=== PATIENT | female | born 1985 | race Caucasian/White ===

== ENCOUNTER 2018-05-09 08:58 | Inpatient (IN) | payer OTHER ==
[~2018-05-09] VITALS: Ht 154.9 cm; Wt 89.5 kg
[2018-05-09 09:21] VITALS: BP 133/81
[2018-05-09] MEDS ORDERED: AMPICILLIN 2 GM in SODIUM CHLORIDE 0.9% 100 ML IVPB STA (09:41)
[2018-05-09] MEDS ORDERED: D5%-LACTATED RINGERS 1,000 ML IV SCH (09:41)
[2018-05-09] MEDS ORDERED: OXYTOCIN 30U/ 0.9% NaCL 500ML 500 ML IV ONE (09:41)
[2018-05-09] MEDS ORDERED: OXYTOCIN 30U/ 0.9% NaCL 500ML 500 ML ONE (09:50)
[2018-05-09] MEDS ORDERED: FENTANYL PF 100 MCG/2ML IV PRN (10:00)
[2018-05-09] MEDS ORDERED: TERBUTALINE 1 MG/ML, 1ML IVPush PRN (10:00)
[2018-05-09] MEDS ORDERED: ONDANSETRON 2MG/ML, 2ML IVPush PRN (10:00)
[2018-05-09] MEDS ORDERED: FENTANYL PF 100 MCG/2ML IVPush PRN (10:00)
[2018-05-09] MEDS: LACTATED RINGERS 1,000 ML IV SCH ×3 (10:17→19:32)
[2018-05-09 10:25] LABS: BASOPHILS # (AUTO) 0.05 x10^3/uL (0-0.1); BASOPHILS % (AUTO) 1 % (0-1); EOSINOPHILS # (AUTO) 0.18 x10^3/uL (0-0.4); EOSINOPHILS % (AUTO) 2 % (1-7); LYMPHOCYTES # (AUTO) 2.05 x10^3/uL (1-3.4); LYMPHOCYTES % (AUTO) 20 % (22-44); MD NO; MEAN CORPUSCULAR HEMOGLOBIN 33.2 pg (27.0-34.8); MEAN CORPUSCULAR HGB CONC 34.7 g/dL (32.4-35.8); MEAN CORPUSCULAR VOLUME 95.4 fL (80-100); MEAN PLATELET VOLUME 9.8 fL (7.4-10.4); MONOCYTES % (AUTO) 6 % (2-9); NEUTROPHILS # (AUTO) 7.64 x10^3/uL (1.8-6.8); NEUTROPHILS % (AUTO) 73 % (42-75); PLATELET COUNT 201 x10^3/uL (130-400); RED CELL DISTRIBUTION WIDTH 14.1 % (9.6-15.2)
[2018-05-09] MEDS ORDERED: NEWBORN KIT ONE (11:58)
[2018-05-09] MEDS ORDERED: MISOPROSTOL 200 MCG TABLET ONE (11:58)
[2018-05-09] MEDS ORDERED: LIDOCAINE 1%, 50ML ONE (11:58)
[2018-05-09] MEDS ORDERED: OXYTOCIN 30U/ 0.9% NaCL 500ML 500 ML IV PRN (12:08)
[2018-05-09] MEDS: AMPICILLIN 1 GM in SODIUM CHLORIDE 0.9% 100 ML IVPB SCH ×2 (14:26→18:30)
[2018-05-09] MEDS ORDERED: BUPIVACAINE 0.25% ONE (18:18)
[2018-05-09] MEDS ORDERED: LEVO50TA PO (18:27)
[2018-05-09] MEDS ORDERED: FENTANYL/BUPIV./NS/PF 250 ML EPIDCONT SCH (18:38)
[2018-05-09] MEDS ORDERED: FENTANYL PF 500 MCG, BUPIVACAINE/PF 0.5%, 30ML 62.5 ML in SODIUM CHLORIDE 0.9% 177.5 ML EPIDCONT SCH (19:00)
[2018-05-09 19:48] VITALS: BP 112/56
[2018-05-09] MEDS ORDERED: CETI10CA PO (19:57)
[2018-05-10] MEDS ORDERED: LIDOCAINE 1%-EPI 1:100K, 20ML ONE (00:07)
[2018-05-10] MEDS ORDERED: SODIUM CITRATE/CITRIC ACID 30 ML UDC ONE (00:54)
[2018-05-10] MEDS ORDERED: METOCLOPRAMIDE 5 MG/ML, 2ML ONE (00:54)
[2018-05-10] MEDS ORDERED: MISOPROSTOL 200 MCG TABLET PR PRN (02:00)
[2018-05-10] MEDS ORDERED: OXYcodone IR 5MG TABLET PO PRN ×2 (02:00)
[2018-05-10] MEDS ORDERED: DOCUSATE 100 MG CAPSULE PO PRN (02:00)
[2018-05-10] MEDS ORDERED: ACETAMINOPHEN 325 MG TABLET PO PRN (02:00)
[2018-05-10] MEDS ORDERED: IBUPROFEN 600 MG TABLET ONE (02:06)
[2018-05-10] MEDS: IBUPROFEN 600 MG TABLET PO PRN ×4 (02:20→22:30)
[2018-05-10] MEDS ORDERED: OXYTOCIN 30U/ 0.9% NaCL 500ML 500 ML ONE (02:27)
[2018-05-10] MEDS: OXYTOCIN 30U/ 0.9% NaCL 500ML 500 ML IV SCH ×3 (02:29→21:55)
[2018-05-10 04:15] VITALS: BP 118/69
[2018-05-10 08:00] VITALS: BP 124/76
[2018-05-10] MEDS: PRENATAL VIT/IRON/FA 1 EACH TABLET PO SCH (09:00)
[2018-05-10 09:51] LABS: BASOPHILS # (AUTO) 0.04 x10^3/uL (0-0.1); BASOPHILS % (AUTO) 0 % (0-1); EOSINOPHILS # (AUTO) 0.03 x10^3/uL (0-0.4); EOSINOPHILS % (AUTO) 0 % (1-7); LYMPHOCYTES # (AUTO) 1.66 x10^3/uL (1-3.4); LYMPHOCYTES % (AUTO) 13 % (22-44); MD NO; MEAN CORPUSCULAR HEMOGLOBIN 33.2 pg (27.0-34.8); MEAN CORPUSCULAR HGB CONC 34.9 g/dL (32.4-35.8); MEAN CORPUSCULAR VOLUME 95.1 fL (80-100); MEAN PLATELET VOLUME 9.4 fL (7.4-10.4); MONOCYTES # (AUTO) 0.79 x10^3/uL (0.2-0.8); MONOCYTES % (AUTO) 6 % (2-9); NEUTROPHILS # (AUTO) 10.28 x10^3/uL (1.8-6.8); NEUTROPHILS % (AUTO) 80 % (42-75); PLATELET COUNT 198 x10^3/uL (130-400); RED BLOOD COUNT 3.45 x10^6/uL (3.82-5.3); RED CELL DISTRIBUTION WIDTH 13.8 % (9.6-15.2)
[2018-05-10] MEDS ORDERED: RHOGAM FROM BLOOD BANK 1 NOTE EA IM/IV ONE (11:30)
[2018-05-10 12:48] VITALS: BP 109/68
[2018-05-10 20:45] VITALS: BP 123/76
[2018-05-11 01:00] VITALS: BP 130/75
[2018-05-11] MEDS: IBUPROFEN 600 MG TABLET PO PRN (05:17)
[2018-05-11 07:30] VITALS: BP 127/73
[2018-05-11] MEDS ORDERED: IBUP-1222 PO (07:39)
[2018-05-11] MEDS: OXYTOCIN 30U/ 0.9% NaCL 500ML 500 ML IV SCH (07:55)
[2018-05-11] MEDS: PRENATAL VIT/IRON/FA 1 EACH TABLET PO SCH (09:00)
== END 2018-05-11 10:12 | disposition home or self-care (01) | DRG 775 ==
LOC: LDOP 08:58 → LDIP 09:51 → 2NW 05-10 04:05
PROVIDERS: ADMIT Obstetrics & Gynecology; ATTEND Obstetrics & Gynecology
PROC: 10D07Z6 Extraction of Products of Conception, Vacuum, Via Natural or Artificial Opening (ICD-10-PCS; principal; 2018-05-10)
PROC: 0W8NXZZ Division of Female Perineum, External Approach (ICD-10-PCS; 2018-05-10)
PROC: 30233S1 Transfusion of Nonautologous Globulin into Peripheral Vein, Percutaneous Approach (ICD-10-PCS; 2018-05-10)
PROC: 3E0R3BZ Introduction of Anesthetic Agent into Spinal Canal, Percutaneous Approach (ICD-10-PCS; 2018-05-10)
PROC: 00HU33Z Insertion of Infusion Device into Spinal Canal, Percutaneous Approach (ICD-10-PCS; 2018-05-10)
DX: O42.90 Premature rupture of membranes, unspecified as to length of time between rupture and onset of labor, unspecified weeks of gestation (principal); Z37.0 Single live birth; Z3A.40 40 weeks gestation of pregnancy; O99.284 Endocrine, nutritional and metabolic diseases complicating childbirth; O69.81X0 Labor and delivery complicated by cord around neck, without compression, not applicable or unspecified; O99.52 Diseases of the respiratory system complicating childbirth; O99.824 Streptococcus B carrier state complicating childbirth; J45.909 Unspecified asthma, uncomplicated; E03.9 Hypothyroidism, unspecified; Z80.3 Family history of malignant neoplasm of breast; Z83.3 Family history of diabetes mellitus; Z90.49 Acquired absence of other specified parts of digestive tract; Z98.891 History of uterine scar from previous surgery; Z88.8 Allergy status to other drugs, medicaments and biological substances
CPT/HCPCS: 36415; J2790; 84112; 85025; 85461; 86850; 86900; G0378; J0290; J3010; J3490; J2590; J7050; J7120